=== PATIENT | male | born 1990 | race Caucasian/White ===

== ENCOUNTER 2016-11-25 20:33 | Emergency (ER) | payer OTHER ==
[2016-11-25 20:38] VITALS: BP 164/92; PULSE 80; RESP 16; TEMP 97.9; O2SAT 97
--- NOTE | 2016-11-25 21:02 | EDPHY ---
H & P Time Seen by Provider: 11/25/16 20:49 HPI/ROS: CHIEF COMPLAINT: Right hand injury HISTORY OF PRESENT ILLNESS: 26-year-old male presents to the emergency department by private vehicle with injury to the right hand. The patient punched his car window and sustained multiple superficial lacerations. The incident happened just prior to arrival. He is right-hand dominant. He denies retained foreign body or other injuries. He believes his tetanus shot is current. ROS: Denies numbness or tingling in his fingers, retained foreign body, pain in his right wrist or elbow. Past Medical/Surgical History: Negative Social History: Single and lives in [place] Smoking Status: Former smoker Physical Exam: On examination the patient has very superficial less than 0.5 cm laceration to the dorsal aspect of the right 2nd finger and right 4th finger. There is small 1.5 cm laceration overlying the dorsal aspect of the right 3rd finger overlying PIP joint. No tendon injury noted. No evidence of retained foreign body. No palpable bony tenderness. Full range of motion of his fingers. Normal sensation to light touch. Strong radial pulse at the right wrist. Constitutional: Initial Vital Signs Temperature (C) 36.6 C 11/25/16 20:35 Heart Rate 80 11/25/16 20:35 Respiratory Rate 16 11/25/16 20:35 Blood Pressure 164/92 H 11/25/16 20:35 O2 Sat (%) 97 11/25/16 20:35 O2 Delivery Mode Room Air Allergies/Adverse Reactions: No Known Allergies Allergy (Verified 11/25/16 20:38) Home Medications: Medication Instructions Recorded Zantac 11/25/16 MDM/Departure - MDM Procedures: Laceration repair. Verbal consent was obtained from the patient. The wound size laceration on the right 3rd finger was anesthetized using 1% lidocaine without epinephrine. The wound was irrigated with saline, draped and explored to its base with a gloved finger. There were no deep structures involved. No tendon injury was identified. The wound was repaired with 4 0 Ethilon, 3 sutures. The wound repair was simple. The procedure was performed by myself. ED Course/Re-evaluation: 26-year-old male presents with right hand injury. He has no palpable bony tenderness. He has full range of motion of his fingers. I do not think x-rays are indicated. The patient had multiple superficial abrasions as well as a laceration to the right 3rd finger, see procedure note. Patient was given wound care precautions. - Depart Disposition: Home, Routine, Self-Care Clinical Impression: Laceration of right middle finger Contusion of right hand Qualifiers: Encounter type: initial encounter Qualified Code(s): S60.221A - Contusion of right hand, initial encounter Abrasion of right hand and fingers Qualifiers: Encounter type: initial encounter Qualified Code(s): S60.511A - Abrasion of right hand, initial encounter; S60.419A - Abrasion of unspecified finger, initial encounter Condition: Good Instructions: Laceration (ED), Care For Your Stitches (ED), Acute Wounds (ED) Additional Instructions: Wound Care Follow-Up: Removal of sutures in 7-10 days. Suture removal is complimentary in uncomplicated cases. Infection or abnormal findings would require reevaluation by the MD. In that case, you may be billed. Ibuprofen 600 mg every 8 hours as needed for pain. Return if he notices any signs or symptoms of infection such as redness, swelling, increased pain, fever , purulent drainage.
== END 2016-11-25 22:00 | disposition home or self-care (01) ==
PROC: 0HQFXZZ Repair Right Hand Skin, External Approach (ICD-10-PCS; principal; 2016-11-25)
DX: S61.212A Laceration without foreign body of right middle finger without damage to nail, initial encounter (principal); S60.221A Contusion of right hand, initial encounter; S60.511A Abrasion of right hand, initial encounter; S60.419A Abrasion of unspecified finger, initial encounter; Z87.891 Personal history of nicotine dependence; W22.8XXA Striking against or struck by other objects, initial encounter; Y93.89 Activity, other specified